=== PATIENT | male | born 1995 | race Caucasian/White ===

== ENCOUNTER 2018-10-29 11:25 | Emergency (ER) | payer SELFPAY ==
[2018-10-29] MEDS ORDERED: fentaNYL 100 MCG/2 ML INJ IVP ONE (11:35)
--- NOTE | 2018-10-29 11:36 | EDPHY ---
H & P Stated Complaint: R elbow injury--running this am slipped on ice Time Seen by Provider: 10/29/18 11:33 HPI/ROS: CHIEF COMPLAINT: Right elbow injury HISTORY OF PRESENT ILLNESS: 23-year-old male otherwise healthy arrives via private vehicle complaining of acute right elbow pain. He was running this morning, slipped on ice, fell backward his arm locked, felt immediate pain to his right elbow. Unable to flex at the right elbow secondary to pain. No paresthesia. No proximal pain or injury. No head injury. PRIMARY CARE PROVIDER: REVIEW OF SYSTEMS: 10 systems reviewed and negative with the exception of the elements mentioned in the history of present illness PAST MEDICAL/SURGICAL HISTORY: no anticoagulant use, no relevant medical/ surgical history SOCIAL HISTORY: denies alcohol use at time of incident PHYSICAL EXAM 1) GENERAL: Well-developed, well-nourished, alert and oriented. Appears uncomfortable 2) HEAD: Normocephalic, atraumatic 3) HEENT: Pupils equal, round, reactive to light bilaterally.. 4) NECK: No cervical collar is on. Posterior cervical spine is nontender, no stepoff, no effusion. Full range of motion which does not elicit any midline cervical spine pain, no posterior midline tenderness, no step-off. 5) LUNGS: Clear to auscultation bilaterally, no wheezes, no rhonchi, no retractions. 6) HEART: [Regular rate and rhythm, 7) ABDOMEN: No guarding, no rebound, no focal tenderness, no peritoneal signs, no signs of trauma, no ecchymosis 8) MUSCULOSKELETAL: Right upper extremity: Guarding right elbow, dorsal step- off right elbow. Intact skin. No tenting. Proximally distally nontender. Radial ulnar median nerve function intact distally. Otherwise, Moving all extremities, no focal areas of tenderness, no obvious trauma. 9) BACK: No midline vertebral tenderness, no fluctuance, no step-off, no obvious trauma, no visual or palpable abnormality. 10) SKIN: No laceration. No abrasion DIFFERENTIAL DIAGNOSIS: In no particular order including but not limited to fracture, sprain, strain, dislocation - Personal History Current Tetanus/Diphtheria Vaccine: No Current Tetanus Diphtheria and Acellular Pertussis (TDAP): No - Medical/Surgical History Hx Asthma: No Hx Chronic Respiratory Disease: No Hx Diabetes: No Hx Cardiac Disease: No Hx Renal Disease: No Hx Cirrhosis: No Hx Alcoholism: No Hx HIV/AIDS: No Hx Splenectomy or Spleen Trauma: No Other PMH: denies - Social History Smoking Status: Never smoked Constitutional: Initial Vital Signs Temperature (C) 36.7 C 10/29/18 11:28 Heart Rate 55 L 10/29/18 11:28 Respiratory Rate 18 10/29/18 11:28 Blood Pressure 124/74 H 10/29/18 11:28 O2 Sat (%) 97 10/29/18 11:28 O2 Delivery Mode Room Air Allergies/Adverse Reactions: No Known Allergies Allergy (Unverified 10/29/18 11:27) Home Medications: Medication Instructions Recorded oxyCODONE/APAP 5/325 [Percocet 1 tab PO Q6 #10 tab 10/29/18 5/325] Medical Decision Making - Diagnostics Imaging Results: Imaging Impressions Elbow X-Ray 10/29/18 11:30 Impression: Fracture dislocation of the elbow. 2. Right Elbow, post reduction, 3 views, 12:08 PM Comparison: Prereduction at 11:51 AM. Findings: The elbow joint is reduced. The coronoid process fracture fragment remains anteriorly displaced. The radial head and neck are intact and normally aligned with the capitellum. There is an elbow joint effusion. Impression: Successful reduction. The coronoid process fracture fragment remains displaced. Elbow X-Ray 10/29/18 12:05 Impression: Fracture dislocation of the elbow. 2. Right Elbow, post reduction, 3 views, 12:08 PM Comparison: Prereduction at 11:51 AM. Findings: The elbow joint is reduced. The coronoid process fracture fragment remains anteriorly displaced. The radial head and neck are intact and normally aligned with the capitellum. There is an elbow joint effusion. Impression: Successful reduction. The coronoid process fracture fragment remains displaced. Images reviewed myself Procedures: 12:01 p.m. Procedure: Dislocation reduction. . The dislocation of the right elbow was reduced using traction and counter traction technique without complications. Post reduction the patient's neurovascular exam is normal. Post reduction x-ray demonstrates reduction of the joint to the anatomic position. The procedure was performed by myself. Procedure: Splint A sling splint was applied by ER electronics technician apprentice. After application of the splint I returned and re-examined the patient. The splint was adequately immobilizing the joint and distal to the splint the patient's circulation and sensation were intact. Patient shows no signs of compartment syndrome. Was given orthopedic precautions. ED Course/Re-evaluation: Patient re-evaluated with serial exams most recently at 12:35 p.m.. He is sleeping, easily woken. Posterior Orthoglass splint has been placed. Reviewed his imaging with him. He does have a fracture fragment visualized. He will need to see orthopedics and has been given this referral information as well as analgesia. My usual and customary orthopedic precautions instructions provided. He feels comfortable being discharged Care of patient under supervision of secondary supervising physician Dr Burnham with whom I discussed case. - Data Points Medications Given: Discontinued Medications Fentanyl (Sublimaze) 100 mcg IVP EDNOW ONE Stop: 10/29/18 11:36 Last Admin: 10/29/18 11:43 Dose: 100 mcg Departure - Departure Disposition: Home, Routine, Self-Care Clinical Impression: Elbow dislocation Qualifiers: Encounter type: initial encounter Laterality: right Qualified Code(s): S53.104A - Unspecified dislocation of right ulnohumeral joint, initial encounter Elbow fracture, right Qualifiers: Encounter type: initial encounter Fracture type: closed Qualified Code(s): S42.401A - Unspecified fracture of lower end of right humerus, initial encounter for closed fracture Condition: Good Instructions: Elbow Fracture (ED) Additional Instructions: Return to the ER immediately if you experience discoloration, have worsening pain, numbness, tingling, or any other symptoms that concern you. If you received x-rays in the emergency department today, be advised, that ligamentous , tendon, muscular, and other non-bony injury cannot be fully ruled out. Try to keep your affected extremity elevated above the level of your chest, and keep cold packs on the affected area, for the next 48 hours. Referrals: Harshad George MD [Medical Doctor] - 2-3 days, call for appt. Prescriptions: oxyCODONE/APAP 5/325 [Percocet 5/325] 1 tab PO Q6 #10 tab
[2018-10-29 13:00] VITALS: BP 134/84
== END 2018-10-29 12:59 | disposition home or self-care (01) ==
PROC: 2W38X1Z Immobilization of Right Upper Extremity using Splint (ICD-10-PCS; principal; 2018-10-29)
DX: S42.401A Unspecified fracture of lower end of right humerus, initial encounter for closed fracture (principal); S53.104A Unspecified dislocation of right ulnohumeral joint, initial encounter; W00.0XXA Fall on same level due to ice and snow, initial encounter; Y92.9 Unspecified place or not applicable; Y93.02 Activity, running; Y99.9 Unspecified external cause status
CPT/HCPCS: 96374; A4565; J3010